=== PATIENT | female | born 1995 | race Asian ===

== ENCOUNTER 2019-07-24 12:35 | Emergency (ER) | payer BC ==
--- NOTE | 2019-07-24 12:59 | ED ---
Abdominal Pain/Female - HPI Summary HPI Summary: This patient is a 24 year old female presenting to [facility] with a chief complaint of RLQ pain since she woke up this morning. She reports nausea and a tight stomach but her parents wanted her to get checked out. She denies vomiting and diarrhea. She states all of her symptoms have resolved. She states pressing on it relieved the pain. - History of Current Complaint Chief Complaint: EDAbdPain Stated Complaint: ABD PAIN Time Seen by Provider: 07/24/19 12:44 Hx Obtained From: Patient Severity Initially: Moderate Severity Currently: None Pain Intensity: 0 Pain Scale Used: 0-10 Numeric Location: Discrete At: RLQ Allergies/Adverse Reactions: Allergies Allergy/AdvReac Type Severity Reaction Status Date / Time No Known Allergies Allergy Verified 07/24/19 12:41 Home Medications: Home Medications Pamprin 1 tab PO Q4HR PRN 07/24/19 [History Confirmed 07/24/19] PMH/Surg Hx/FS Hx/Imm Hx Cardiovascular History: Denies: Hx Coronary Artery Disease Respiratory History: Denies: Hx Chronic Obstructive Pulmonary Disease (COPD) Infectious Disease History: No Infectious Disease History: Denies: Traveled Outside the [place] in Last 30 Days - Family History Known Family History: Negative: Cardiac Disease - Social History Occupation: Student Hx Substance Use: No Review of Systems Negative: Fever Positive: Abdominal Pain, Nausea. Negative: Vomiting, Diarrhea All Other Systems Reviewed And Are Negative: Yes Physical Exam - Summary Physical Exam Summary: Appearance: The patient is well-nourished in no acute distress and in no acute pain. Skin: The skin is warm and dry, and skin color reflects adequate perfusion. HEENT: The head is normocephalic and atraumatic. The pupils are equal and reactive. The conjunctivae are clear and without drainage. Nares are patent and without drainage. Mouth reveals moist mucous membranes, and the throat is without erythema and exudate. The external ears are intact. The ear canals are patent and without drainage. The tympanic membranes are intact. Neck: The neck is supple with full range of motion and non-tender. There are no carotid bruits. There is no neck vein distension. Respiratory: Chest is non-tender. Lungs are clear to auscultation and breath sounds are symmetrical and equal. Cardiovascular: Heart is regular rate and rhythm. There is no murmur or rub auscultated. There is no peripheral edema and pulses are symmetrical and equal. Abdomen: The abdomen is soft and non-tender. There are normal bowel sounds heard in all four quadrants and there is no organomegaly palpated. Musculoskeletal: There is no back tenderness noted. Extremities are non-tender with full range of motion. There is good capillary refill. There is no peripheral edema or calf tenderness elicited. Neurological: Patient is alert and oriented to person, place and time. The patient has symmetrical motor strength in all four extremities. Cranial nerves are grossly intact. Deep tendon reflexes are symmetrical and equal in all four extremities. Psychiatric: The patient has an appropriate affect and does not exhibit any anxiety or depression. Triage Information Reviewed: Yes Vital Signs On Initial Exam: Initial Vitals Temp Pulse Resp BP Pulse Ox 98.1 F 91 14 112/79 99 07/24/19 12:38 07/24/19 12:38 07/24/19 12:38 07/24/19 12:38 07/24/19 12:38 Vital Signs Reviewed: Yes Procedures - Sedation Patient Received Moderate/Deep Sedation with Procedure: No Diagnostics - Vital Signs Vital Signs Temp Pulse Resp BP Pulse Ox 07/24/19 12:38 98.1 F 91 14 112/79 99 - Laboratory Lab Statement: Any lab studies that have been ordered have been reviewed, and results considered in the medical decision making process. - Ultrasound No standard instances Ultrasound Interpretation Completed By: Radiologist Summary of Ultrasound Findings: Pelvic: No acute sonographic pathology fo the visualized portion of the palvis. No sonographic features of torsion. Please note that partial or intermittent torsion may be sonographically normal. ED Provider has reviewed this report. Abdominal Pain Fem Course/Dx - Course Course Of Treatment: Ms. Grover had what sounds like fairly significant right lower quadrant pain when she woke up this morning which lasted a couple of hours. By the time she gets here she is pain-free. Her exam is generally unremarkable. Transvaginal ultrasound was negative. Her urinalysis showed very slight microscopic hematuria. I'm not sure what happened she could have a kidney stone but I do not think the likelihood rises to the point of irradiating her. Her urine is negative for infection is not dangerous to wait. She could have intermittent torsion and is warned about that. I recommended follow-up and return if her pain returns. - Diagnoses Provider Diagnoses: Pelvic pain Discharge ED - Sign-Out/Discharge Documenting (check all that apply): Patient Departure - Discharge - Discharge Plan Condition: Stable Disposition: HOME Patient Education Materials: Pelvic Pain in Women (ED) Referrals: [facility] [Provider Group] Additional Instructions: Return to ED with new or worsening symptoms. - Billing Disposition and Condition Condition: STABLE Disposition: Home - Attestation Statements Document Initiated by Radhaibe: Yes Documenting Scribe: Alex Whitehead Provider For Whom Priti is Documenting (Include Credential): Manjeet Bill MD Scribe Attestation: Alex Bedolla, scribed for Manjeet Bill MD on 07/24/19 at 1946. Scribe Documentation Reviewed: Yes Provider Attestation: The documentation as recorded by the Alex morin accurately reflects the service I personally performed and the decisions made by me, Manjeet Bill MD Status of Scribe Document: Viewed
[2019-07-24 13:31] LABS: Urine Appearance Cloudy; Urine Bacteria Absent (Absent); Urine Bilirubin Negative (Negative); Urine Blood Negative (Negative); Urine Color Yellow; Urine Glucose Negative (Negative); Urine Ketones Negative (Negative); Urine Nitrite Negative (Negative); Urine Protein Negative (Negative); Urine Red Blood Cell Trace(0-2/hpf) (Absent); Urine Specific Gravity 1.014 (1.010-1.030); Urine Squamous Epithelial Cell Present (Absent); Urine Urobilinogen Negative (Negative); Urine White Blood Cell 1+(6-10/hpf) (Absent)
[2019-07-24 15:08] VITALS: BP 115/64
== END 2019-07-24 15:09 | disposition home or self-care (01) ==
LOC: ED 12:35
DX: R10.2 Pelvic and perineal pain (principal)
CPT/HCPCS: 76856; 81003; 81015; 87086; 99282